=== PATIENT | male | born 1970 | race Two or more races ===

== ENCOUNTER 2018-12-14 11:38 | Inpatient (IN) | payer OTHER ==
[2018-12-14 13:20] VITALS: BMI 23.4
--- NOTE | 2018-12-14 16:39 | HP ---
COWS - Scale Resting Pulse: 0= [place] 80 or Below Sweatin= Chills/Flushing Restless Observation: 3= Extraneous Movement Pupil Size: 1= Pupils >than Normal Bone or Joint Aches: 1= Mild Discomfort Runny Nose/ Eye Tearin= Runny Nose/Eyes GI Upset > 30mins: 2= Nausea/Diarrhea Tremor Observation: 1= Tremor [place], Not Seen Yawning Observation: 0= None Anxiety or Irritability: 2=Irritable/Anxious Goose Flesh Skin: 0=Smooth Skin COWS Score: 13 CIWA Score Nausea/Vomitin Muscle Tremors: 2 Anxiety: 3 Agitation: 3 Paroxysmal Sweats: 1-Minimal Palms Moist Orientation: 0-Oriented Tacttile Disturbances: 2-Mild Itch/Numbness/Burn (numbness b/t feet) Auditory Disturbances: 1-Very Mild Visual Disturbances: 1-Very Mild Sensitivity Headache: 2-Mild CIWA-Ar Total Score: 17 - Admission Criteria OASAS Guidelines: Admission for Medically Managed Detox: Requires at least one of the followin. CIWA greater than 12 2. Seizures within the past 24 hours 3. Delirium tremens within the past 24 hours 4. Hallucinations within the past 24 hours 5. Acute intervention needed for co occurring medical disorder 6. Acute intervention needed for co occurring psychiatric disorder 7. Severe withdrawal that cannot be handled at a lower level of care (continued vomiting, continued diarrhea, abnormal vital signs) requiring intravenous medication and/or fluids 8. Patient presents the following: CIWA greater than 12 Admission Criteria Met: Admission criteria met Admission ROS [facility] Chief Complaint: alcohol and heroin detox Allergies/Adverse Reactions: Allergies Allergy/AdvReac Type Severity Reaction Status Date / Time No Known Allergies Allergy Verified 12/14/18 15:31 History of Present Illness: 48 yo male with hx of nicotine, Heroin (nasal), and alcohol dependence is here seeking detox, patient is self referred. PMHX: GERD. Denies psychiatric problems. Denies hx of blackouts, seizures or overdose Exam Limitations: No Limitations - Ebola screening Have you traveled outside of the country in the last 21 days: No Have you had contact with anyone from an Ebola affected area: No Have you been sick,other than usual withdrawal symptoms: No - Review of Systems Constitutional: Chills, Diaphoresis, Other (fatigue) EENT: reports: Nose Congestion Respiratory: reports: No Symptoms reported Cardiac: reports: No Symptoms Reported GI: reports: Nausea, Poor Fluid Intake, Indigestion, Abdominal cramping : reports: No Symptoms Reported Musculoskeletal: reports: Back Pain, Joint Pain Integumentary: reports: No Symptoms Reported Neuro: reports: Headache Patient History - Patient Medical History Hx Anemia: No Hx Asthma: No Hx Chronic Obstructive Pulmonary Disease (COPD): No Hx Cancer: No Hx Cardiac Disorders: No Hx Congestive Heart Failure: No Hx Hypertension: No Hx Hypercholesterolemia: No Hx Pacemaker: Yes HX Cerebrovascular Accident: No Hx Seizures: No Hx Dementia: No Hx Diabetes: No Hx Gastrointestinal Disorders: Yes (GERD ) Hx Liver Disease: No Hx Genitourinary Disorders: No Hx Sexually Transmitted Disorders: No Hx Renal Disease (ESRD): No Hx Thyroid Disease: No Hx Human Immunodeficiency Virus (HIV): No Hx Hepatitis C: No Hx Depression: No Hx Suicide Attempt: No Hx Bipolar Disorder: No Hx Schizophrenia: No - Patient Surgical History Past Surgical History: No - PPD History Previous Implant?: Yes Documented Results: Negative w/o proof Implanted On Prior [facility] Admission?: No PPD to be Administered?: Yes - Smoking Cessation Smoking history: Current every day smoker Have you smoked in the past 12 months: Yes Aproximately how many cigarettes per day: 2 Hx Chewing Tobacco Use: No Initiated information on smoking cessation: Yes 'Breaking Loose' booklet given: 12/14/18 - Substance & Tx. History Hx Alcohol Use: Yes Hx Substance Use: Yes Substance Use Type: Alcohol, Heroin Hx Substance Use Treatment: Yes (Reports detox July 2018 [facility] ) - Substances Abused Heroin Route: Inhalation Frequency: Daily Amount used: 1 bag Age of first use: 44 Date of Last Use: 12/13/18 alcohol Route: Oral Frequency: Daily Amount used: 1/2 pint Age of first use: 14 Date of Last Use: 12/13/18 Family Disease History - Family Disease History Family History: Denies Admission Physical Exam S - Vital Signs Vital Signs: Vital Signs - 24 hr 12/14/18 13:17 Temperature 97.4 F L Pulse Rate 77 Respiratory 20 Rate Blood Pressure 116/80 - Physical General Appearance: Yes: Appropriately Dressed, Mild Distress, Thin, Irritable, Anxious HEENTM: Yes: EOMI, Hearing grossly Normal, Normal ENT Inspection, Normocephalic , Normal Voice, Pharynx Normal, Tm's normal, Rhinorrhea Respiratory: Yes: Chest Non-Tender, Lungs Clear, Normal Breath Sounds, No Respiratory Distress, No Accessory Muscle Use Neck: Yes: Within Normal Limits Breast: Yes: Breast Exam Deferred Cardiology: Yes: Regular Rhythm, Regular Rate Abdominal: Yes: Normal Bowel Sounds, Non Tender, Flat, Soft Genitourinary: Yes: Within Normal Limits Back: Yes: Normal Inspection Musculoskeletal: Yes: full range of Motion, Gait Steady, Pelvis Stable Extremities: Yes: Normal Capillary Refill, Normal Inspection, Normal Range of Motion, Non-Tender Neurological: Yes: sr risk management consultant II-XII NML intact, Fully Oriented, Alert, Motor Strength 5/5 Integumentary: Yes: Normal Color, Warm, Diaphoresis Lymphatic: Yes: Within Normal Limits - Diagnostic (1) Alcohol dependence with withdrawal Current Visit: Yes Status: Acute Qualifiers: Complication of substance-induced condition: uncomplicated Qualified Code(s ): F10.230 - Alcohol dependence with withdrawal, uncomplicated (2) Opioid dependence with withdrawal Current Visit: Yes Status: Acute (3) Nicotine dependence Current Visit: Yes Status: Acute Qualifiers: Nicotine product type: cigarettes Cleared for Admission [facility] - Detox or Rehab [facility] Level of Care: Medically Managed Detox Regimen/Protocol: Methadone/Librium [facility] Breath Alcohol Content Breath Alcohol Content: 0 Urine Drug Screen - Results Drug Screen Negative: No Urine Drug Screen Results: THC-Marijuana, JAS-Cocaine, OPI-Opiates Inpatient Rehab Admission - Rehab Decision to Admit Inpatient rehab admission?: No
[2018-12-14] MEDS ORDERED: MAGNESIUM CITRATE 300 ML BOTTLE PO PRN (16:50)
[2018-12-14] MEDS ORDERED: MENTHOL/PHENOL 1 EACH UD MM PRN (16:50)
[2018-12-14] MEDS ORDERED: MAGNESIUM HYDROX 2400MG/30ML ORAL SUSPENSION 30 ML CUP PO PRN (16:50)
[2018-12-14] MEDS ORDERED: BISMUTH SUBSALICYLATE 524 MG/30 ML UD PO PRN (16:50)
[2018-12-14] MEDS ORDERED: ACETAMINOPHEN 325 MG TABLET (FP) PO PRN ×2 (16:50)
[2018-12-14] MEDS ORDERED: NICOTINE POLACRILEX 2 MG GUM BUC PRN (16:50)
[2018-12-14] MEDS ORDERED: MELATONIN 5 MG TABLETS PO PRN (16:50)
[2018-12-14] MEDS ORDERED: METHOCARBAMOL 500 MG TABLET PO PRN (16:50)
[2018-12-14] MEDS ORDERED: cloNIDine HCL 0.1 MG TABLET PO PRN (16:50)
[2018-12-14] MEDS ORDERED: IBUPROFEN 400 MG TABLET (FP) PO PRN (16:50)
[2018-12-14] MEDS ORDERED: chlordiazePOXIDE HCL 10 MG CAPSULE PO PRN (16:50)
[2018-12-14] MEDS ORDERED: MAG HYDROX/AL HYDROX/SIMETH 30 ML UNIT-DOSE CUP PO PRN (16:50)
[2018-12-14] MEDS: chlordiazePOXIDE HCL 25 MG CAPSULE PO SCH (22:07)
[2018-12-14] MEDS: THIAMINE HCL 100 MG TABLET (FP) PO SCH (22:07)
[2018-12-14] MEDS ORDERED: METHADONE HCL 10 MG TABLET (FOR DETOX USE ONLY) PO ONE (23:00)
[2018-12-15] MEDS: chlordiazePOXIDE HCL 25 MG CAPSULE PO SCH ×2 (05:25→14:11)
[2018-12-15] MEDS ORDERED: METHADONE HCL 5 MG TABLET (FOR DETOX USE ONLY) PO ONE (10:00)
[2018-12-15] MEDS: PRENATAL VITAMINS W/ FOLIC ACID TABLET (FP) PO SCH (10:10)
--- NOTE | 2018-12-15 10:18 | PN ---
[facility] CIWA - CIWA Score Nausea/Vomitin-No Nausea/No Vomiting Muscle Tremors: 3 Anxiety: 1-Mildly Anxious Agitation: 2 Paroxysmal Sweats: 1-Minimal Palms Moist Orientation: 3-Disoriented Date>2 days Tacttile Disturbances: 0-None Auditory Disturbances: 0-None Visual Disturbances: 0-None Headache: 2-Mild CIWA-Ar Total Score: 12 BHS COWS - Scale Resting Pulse: 0= [place] 80 or Below Sweatin= Chills/Flushing Restless Observation: 0= Sits Still Pupil Size: 0= Normal to Room Light Bone or Joint Aches: 1= Mild Discomfort Runny Nose/ Eye Tearin= Nasal Congestion GI Upset > 30mins: 1= Stomach Cramp Tremor Observation of Outstretched Hands: 2= Slight Tremor Visible Yawning Observation: 2= >3x During Session Anxiety or Irritability: 1=Feels Anxious/Irritable Goose Flesh Skin: 0=Smooth Skin COWS Score: 9 BHS Progress Note (SOAP) Subjective: reporting feeling ok today less tremor mild body aches encourage oral fluid that the patient favoring juice discuss low sugar content oral fluid Objective: 12/15/18 10:18 Vital Signs Temperature 97.2 F L 12/15/18 10:07 Pulse Rate 85 12/15/18 10:07 Respiratory Rate 18 12/15/18 10:07 Blood Pressure 105/68 12/15/18 10:07 O2 Sat by Pulse Oximetry (%) 12/15/18 10:18 lab pending Assessment: 12/15/18 10:20 alcohol and opiate withdrawal sx Plan: continue deotx
[2018-12-15 11:30] LABS: HEMATOCRIT 36.1 % (35.4-49); HEMOGLOBIN 12.3 GM/dL (11.7-16.9); MCH 31.3 pg (25.7-33.7); MCHC 34.1 g/dl (32.0-35.9); MEAN CELL VOLUME 91.6 fl (80-96); MEAN PLT VOLUME 9.4 fl (7.5-11.1); PLATELET COUNT 188 K/MM3 (134-434); RBC 3.94 M/mm3 (4.00-5.60); RDW 13.5 % (11.9-15.9); WHITE BLOOD COUNT 4.1 K/mm3 (4.0-10.0)
[2018-12-15 11:31] LABS: ALBUMIN 3.6 g/dl (3.4-5.0); ALK PHOS 47 U/L (45-117); ANION GAP 8 MMOL/L (8-16); BILIRUBIN,TOTAL 0.2 mg/dL (0.2-1); BLOOD UREA NITROGEN 13 mg/dL (7-18); CALCIUM 8.9 mg/dL (8.5-10.1); CHLORIDE 107 mmol/L (98-107); CO2 24 mmol/L (21-32); CREATININE 1.2 mg/dL (0.55-1.3); GLUCOSE,RANDOM 91 mg/dL (74-106); POTASSIUM 3.8 mmol/L (3.5-5.1); SGOT/AST 19 U/L (15-37); SGPT/ALT 25 U/L (13-61); SODIUM 138 mmol/L (136-145); TOT PROT 6.2 g/dl (6.4-8.2)
--- NOTE | 2018-12-15 14:06 | EKG ---
Test Reason : Blood Pressure : / mmHG Vent. Rate : 064 BPM Atrial Rate : 064 BPM P-R Int : 158 ms QRS Dur : 086 ms QT Int : 394 ms P-R-T Axes : 071 074 047 degrees QTc Int : 406 ms NORMAL SINUS RHYTHM NORMAL ECG NO PREVIOUS ECGS AVAILABLE Confirmed by LAWRENCE KAISER, YOSELYN ([id number]) on 12/15/2018 2:05:59 PM Referred By: Confirmed By:YOSELYN BRAVO MD
[2018-12-15] MEDS: THIAMINE HCL 100 MG TABLET (FP) PO SCH (22:13)
[2018-12-15] MEDS: chlordiazePOXIDE 5 MG CAPSULE PO SCH (22:14)
[2018-12-16] MEDS: chlordiazePOXIDE 5 MG CAPSULE PO SCH ×2 (05:06→14:38)
[2018-12-16] MEDS ORDERED: METHADONE HCL 10 MG TABLET (FOR DETOX USE ONLY) PO ONE (10:00)
[2018-12-16] MEDS: PRENATAL VITAMINS W/ FOLIC ACID TABLET (FP) PO SCH (10:22)
--- NOTE | 2018-12-16 11:04 | PN ---
[facility] CIWA - CIWA Score Nausea/Vomitin-No Nausea/No Vomiting Muscle Tremors: 1-None Visible, but Pettus Anxiety: 1-Mildly Anxious Agitation: 1-Slight > Activity Paroxysmal Sweats: 1-Minimal Palms Moist Orientation: 1-Uncertain about Date Tacttile Disturbances: 0-None Auditory Disturbances: 0-None Visual Disturbances: 0-None Headache: 1-Very Mild CIWA-Ar Total Score: 6 S Progress Note (SOAP) Subjective: reporting better today able to sleep through the night Objective: 12/16/18 11:03 Vital Signs Temperature 96.9 F L 12/16/18 09:56 Pulse Rate 72 12/16/18 09:56 Respiratory Rate 18 12/16/18 09:56 Blood Pressure 90/60 12/16/18 09:56 O2 Sat by Pulse Oximetry (%) Laboratory Last Values WBC 4.1 K/mm3 (4.0-10.0) 12/15/18 07:30 RBC 3.94 M/mm3 (4.00-5.60) L 12/15/18 07:30 Hgb 12.3 GM/dL (11.7-16.9) 12/15/18 07:30 Hct 36.1 % (35.4-49) 12/15/18 07:30 MCV 91.6 fl (80-96) 12/15/18 07:30 MCH 31.3 pg (25.7-33.7) 12/15/18 07:30 MCHC 34.1 g/dl (32.0-35.9) 12/15/18 07:30 RDW 13.5 % (11.9-15.9) 12/15/18 07:30 Plt Count 188 K/MM3 (134-434) 12/15/18 07:30 MPV 9.4 fl (7.5-11.1) 12/15/18 07:30 Sodium 138 mmol/L (136-145) 12/15/18 07:30 Potassium 3.8 mmol/L (3.5-5.1) 12/15/18 07:30 Chloride 107 mmol/L (98-107) 12/15/18 07:30 Carbon Dioxide 24 mmol/L (21-32) 12/15/18 07:30 Anion Gap 8 MMOL/L (8-16) 12/15/18 07:30 BUN 13 mg/dL (7-18) 12/15/18 07:30 Creatinine 1.2 mg/dL (0.55-1.3) 12/15/18 07:30 Creat Clearance w eGFR 64.09 (>60) 12/15/18 07:30 Random Glucose 91 mg/dL (74-106) 12/15/18 07:30 Calcium 8.9 mg/dL (8.5-10.1) 12/15/18 07:30 Total Bilirubin 0.2 mg/dL (0.2-1) 12/15/18 07:30 AST 19 U/L (15-37) 12/15/18 07:30 ALT 25 U/L (13-61) 12/15/18 07:30 Alkaline Phosphatase 47 U/L (45-117) 12/15/18 07:30 Total Protein 6.2 g/dl (6.4-8.2) L 12/15/18 07:30 Albumin 3.6 g/dl (3.4-5.0) 12/15/18 07:30 RPR Titer Nonreactive (NONREACTIVE) 12/15/18 07:30 lab noted Assessment: 12/16/18 11:03 withdrawal sx Plan: continue detox
--- NOTE | 2018-12-16 11:13 | PN ---
BHS COWS - Scale Resting Pulse: 0= IN 80 or Below Sweatin= Chills/Flushing Restless Observation: 0= Sits Still Pupil Size: 0= Normal to Room Light Bone or Joint Aches: 1= Mild Discomfort Runny Nose/ Eye Tearin= Nasal Congestion GI Upset > 30mins: 1= Stomach Cramp Tremor Observation of Outstretched Hands: 0= None Yawning Observation: 0= None Anxiety or Irritability: 1=Feels Anxious/Irritable Goose Flesh Skin: 0=Smooth Skin COWS Score: 5
[2018-12-16] MEDS ORDERED: chlordiazePOXIDE HCL 10 MG CAPSULE PO PRN (21:00)
[2018-12-16] MEDS: THIAMINE HCL 100 MG TABLET (FP) PO SCH (22:04)
[2018-12-16] MEDS: chlordiazePOXIDE HCL 10 MG CAPSULE PO SCH (22:04)
[2018-12-17] MEDS: chlordiazePOXIDE HCL 10 MG CAPSULE PO SCH (05:09)
[2018-12-17] MEDS ORDERED: METHADONE HCL 5 MG TABLET (FOR DETOX USE ONLY) PO ONE (06:00)
[2018-12-17 06:20] VITALS: BP 99/53; PULSE 75; TEMP 97.7
--- NOTE | 2018-12-17 17:41 | DS ---
[facility] Detox Discharge Summary Admission Date: 12/14/18 Discharge Date: 12/17/18 - History Present History: Alcohol Dependence, Opioid Dependence Additional Comments: PATIENT REFERR[facility] [place]. PATIENT WAS DISCHARGED FROM DETOX UNIT IN STABLE MEDICAL CONDITION. Pertinent Past History: History Of Pacemaker Placement, History of G.E.R.D., Nicotine Dependence. - Physical Exam Results Vital Signs: Vital Signs Temperature 97.7 F 12/17/18 06:19 Pulse Rate 75 12/17/18 06:19 Respiratory Rate 18 12/17/18 06:19 Blood Pressure 99/53 L 12/17/18 06:19 O2 Sat by Pulse Oximetry (%) Pertinent Admission Physical Exam Findings: WITHDRAWAL SYMPTOMS. Laboratory Tests 12/15/18 12/15/18 12/15/18 07:30 07:30 07:30 WBC 4.1 RBC 3.94 L Hgb 12.3 Hct 36.1 MCV 91.6 MCH 31.3 MCHC 34.1 RDW 13.5 Plt Count 188 MPV 9.4 Sodium 138 Potassium 3.8 Chloride 107 Carbon Dioxide 24 Anion Gap 8 BUN 13 Creatinine 1.2 Creat Clearance w eGFR 64.09 Random Glucose 91 Calcium 8.9 Total Bilirubin 0.2 AST 19 ALT 25 Alkaline Phosphatase 47 Total Protein 6.2 L Albumin 3.6 RPR Titer Nonreactive LABS NOTED. - Treatment Hospital Course: Detox Protocol Followed, Detoxed Safely, Responded well, Discharged Condition Good Patient has Accepted a Rehab Referral to: PT. REFERRED TO [facility] ([place], [place]) - Medication Discharge Medications: Ambulatory Orders NK [No Known Home Medication] 12/14/18 - Diagnosis (1) Alcohol dependence with withdrawal Status: Acute Qualifiers: Complication of substance-induced condition: uncomplicated Qualified Code(s ): F10.230 - Alcohol dependence with withdrawal, uncomplicated (2) Nicotine dependence Status: Acute Qualifiers: Nicotine product type: cigarettes Substance use status: uncomplicated Qualified Code(s): F17.210 - Nicotine dependence, cigarettes, uncomplicated (3) Opioid dependence with withdrawal Status: Acute - AMA Did Patient Leave Against Medical Advice: No
== END 2018-12-17 08:30 | disposition home or self-care (01) | DRG 773 ==
LOC: YASAS 11:38 → Y3N 17:45
PROVIDERS: ADMIT Surgery; ATTEND Surgery
PROC: HZ2ZZZZ Detoxification Services for Substance Abuse Treatment (ICD-10-PCS; principal; 2018-12-14)
DX: F11.23 Opioid dependence with withdrawal (principal); F10.230 Alcohol dependence with withdrawal, uncomplicated; F17.213 Nicotine dependence, cigarettes, with withdrawal; K21.9 Gastro-esophageal reflux disease without esophagitis; Z95.0 Presence of cardiac pacemaker
CPT/HCPCS: 36415; 80053; 85027; 86593; 93005; 93010

== ENCOUNTER 2019-03-01 15:10 | Inpatient (IN) | payer OTHER ==
[2019-03-01 18:44] VITALS: BMI 24.0
--- NOTE | 2019-03-01 19:09 | HP ---
"COWS - Scale Resting Pulse: 1= [place] 81-100 Sweatin= No chills or Flushing Restless Observation: 3= Extraneous Movement Pupil Size: 0= Normal to Room Light Bone or Joint Aches: 0= None Runny Nose/ Eye Tearin= None GI Upset > 30mins: 0= None Tremor Observation: 0= None Yawning Observation: 1= 1-2x During Session Anxiety or Irritability: 2=Irritable/Anxious Goose Flesh Skin: 0=Smooth Skin COWS Score: 7 CIWA Score - Admission Criteria OASAS Guidelines: Admission for Medically Managed Detox: Requires at least one of the followin. CIWA greater than 12 2. Seizures within the past 24 hours 3. Delirium tremens within the past 24 hours 4. Hallucinations within the past 24 hours 5. Acute intervention needed for co occurring medical disorder 6. Acute intervention needed for co occurring psychiatric disorder 7. Severe withdrawal that cannot be handled at a lower level of care (continued vomiting, continued diarrhea, abnormal vital signs) requiring intravenous medication and/or fluids 8. Admission ROS [facility] Allergies/Adverse Reactions: Allergies Allergy/AdvReac Type Severity Reaction Status Date / Time No Known Allergies Allergy Verified 03/01/19 18:36 History of Present Illness: Search Terms: dez morales, 1970 Search Date: 03/01/2019 07:07:04 PM The Drug Utilization Report below displays all of the controlled substance prescriptions, if any, that your patient has filled in the last twelve months. The information displayed on this report is compiled from pharmacy submissions to the Department, and accurately reflects the information as submitted by the pharmacies. This report was requested by: Cassi Maloney | Reference #: [id number] There are no results for the search terms that you entered. pt here for detox from opiate use , reports 1 bag heroin /day via inhalation , use x 4 years intermittently , reports symptoms if not using , latest use yesterday 3 pm , current symptoms as above . Referred by parole for detox and rehab - has letter . In [facility] outpt program x 5 months . Reports use every other day . denies etoh use tobacco : 10/01 ppd cannabis - denies PMHX : spontaneous pneumothorax 22 years ago PSHx : denies psych : denies shx ; lives w/ father , unemployed , on parole Exam Limitations: No Limitations - Ebola screening Have you traveled outside of the country in the last 21 days: No (N) Have you had contact with anyone from an Ebola affected area: No Do you have a fever: No - Review of Systems Constitutional: See HPI EENT: reports: Other (glasses) Respiratory: reports: No Symptoms reported Cardiac: reports: No Symptoms Reported GI: reports: No Symptoms Reported : reports: No Symptoms Reported Musculoskeletal: reports: No Symptoms Reported Neuro: reports: No Symptoms reported Endocrine: reports: No Symptoms Reported Psychiatric: reports: Orientated x3, Agitated, Anxious Patient History - Patient Medical History Hx Anemia: No Hx Asthma: No Hx Chronic Obstructive Pulmonary Disease (COPD): No Hx Cancer: No Hx Cardiac Disorders: No Hx Congestive Heart Failure: No Hx Hypertension: No Hx Hypercholesterolemia: No Hx Pacemaker: Yes HX Cerebrovascular Accident: No Hx Seizures: No Hx Dementia: No Hx Diabetes: No Hx Gastrointestinal Disorders: Yes (GERD ) Hx Liver Disease: No Hx Genitourinary Disorders: No Hx Sexually Transmitted Disorders: No Hx Renal Disease (ESRD): No Hx Thyroid Disease: No Hx Human Immunodeficiency Virus (HIV): No Hx Hepatitis C: No Hx Depression: No Hx Suicide Attempt: No Hx Bipolar Disorder: No Hx Schizophrenia: No - Patient Surgical History Past Surgical History: No - PPD History Date: 12/16/18 - Smoking Cessation Smoking history: Current every day smoker Have you smoked in the past 12 months: Yes Aproximately how many cigarettes per day: 2 Hx Chewing Tobacco Use: No Initiated information on smoking cessation: No - Substances abused Heroin Substance route: Inhalation Frequency: Daily Amount used: 1 bag Age of first use: 44 Date of last use: 02/28/19 Alcohol Substance route: Oral Frequency: No use in 30 days Family Disease History - Family Disease History Family Disease History: Other: Father (A & W ), Mother (A & W ), Brother (A & W ), Sister (A & W ) Other Family History: no children Admission Physical Exam BHS - Vital Signs Vital Signs: Vital Signs - 24 hr 03/01/19 18:33 Temperature 97.2 F L Pulse Rate 83 Respiratory 16 Rate Blood Pressure 116/72 - Physical General Appearance: Yes: Irritable, Anxious HEENTM: Yes: EOMI, Normocephalic, Normal Voice, Other (right superior palpebral lipoma) Respiratory: Yes: Chest Non-Tender, Lungs Clear, Normal Breath Sounds, No Respiratory Distress, No Accessory Muscle Use Neck: Yes: No masses,lesions,Nodules, Trachea in good position Cardiology: Yes: Regular Rhythm, Regular Rate, S1, S2 Abdominal: Yes: Non Tender, Soft Musculoskeletal: Yes: Gait Steady Extremities: Yes: Normal Range of Motion Neurological: Yes: Fully Oriented, Alert, Motor Strength 5/5 Integumentary: Yes: Warm - Diagnostic (1) Opioid abuse Current Visit: Yes Status: Acute (2) Nicotine dependence Current Visit: Yes Status: Chronic Qualifiers: Nicotine product type: cigarettes Substance use status: uncomplicated Qualified Code(s): F17.210 - Nicotine dependence, cigarettes, uncomplicated Breathalyzer - Breathalyzer Breathalyzer: 0 Urine Drug Screen - Test Device Lot number: [id number] Expiration date: 11/25/20 - Control Is test valid?: Yes - Results Drug screen NEGATIVE: No Urine drug screen results: THC-Marijuana, MOP-Opiates Inpatient Rehab Admission - Rehab Decision to Admit Inpatient rehab admission?: No"
[2019-03-01] MEDS ORDERED: MAGNESIUM CITRATE 300 ML BOTTLE PO PRN (19:33)
[2019-03-01] MEDS ORDERED: IBUPROFEN 400 MG TABLET (FP) PO PRN (19:33)
[2019-03-01] MEDS ORDERED: MAGNESIUM HYDROX 2400MG/30ML ORAL SUSPENSION 30 ML CUP PO PRN (19:33)
[2019-03-01] MEDS ORDERED: MAG HYDROX/AL HYDROX/SIMETH 30 ML UNIT-DOSE CUP PO PRN (19:33)
[2019-03-01] MEDS ORDERED: ACETAMINOPHEN 325 MG TABLET (FP) PO PRN ×2 (19:33)
[2019-03-01] MEDS ORDERED: BISMUTH SUBSALICYLATE 524 MG/30 ML UD PO PRN (19:33)
[2019-03-01] MEDS ORDERED: MENTHOL/PHENOL 1 EACH UD MM PRN (19:33)
[2019-03-01] MEDS ORDERED: cloNIDine HCL 0.1 MG TABLET PO PRN (19:33)
[2019-03-01] MEDS: MELATONIN 5 MG TABLETS PO PRN (22:18)
[2019-03-01] MEDS: THIAMINE HCL 100 MG TABLET (FP) PO SCH (22:18)
[2019-03-01] MEDS ORDERED: METHADONE HCL 10 MG TABLET (FOR DETOX USE ONLY) PO ONE (23:00)
[2019-03-02] MEDS: hydrOXYzine PAMOATE 25 MG CAPSULE (FP) PO PRN (06:14)
--- NOTE | 2019-03-02 09:45 | PN ---
BHS COWS - Scale Resting Pulse: 0= [place] 80 or Below Sweatin=Flushed/Facial Moisture Restless Observation: 1= Difficult to Sit Still Pupil Size: 0= Normal to Room Light Bone or Joint Aches: 1= Mild Discomfort Runny Nose/ Eye Tearin= Nasal Congestion GI Upset > 30mins: 0= None Tremor Observation of Outstretched Hands: 1= Tremor Sheldon, Not Seen Yawning Observation: 1= 1-2x During Session Anxiety or Irritability: 1=Feels Anxious/Irritable Goose Flesh Skin: 0=Smooth Skin COWS Score: 8 BHS Progress Note (SOAP) Subjective: chills sweats Objective: 03/02/19 09:45 Vital Signs Temperature 97.7 F 03/02/19 09:30 Pulse Rate 72 03/02/19 09:30 Respiratory Rate 18 03/02/19 09:30 Blood Pressure 114/62 03/02/19 09:30 O2 Sat by Pulse Oximetry (%) pending labs [id number] ambulating no acute distress Assessment: 03/02/19 09:45 mild withdrawal sx Plan: continue detox as ordered increase fluids
[2019-03-02] MEDS ORDERED: METHADONE HCL 5 MG TABLET (FOR DETOX USE ONLY) PO ONE (10:00)
[2019-03-02] MEDS: PRENATAL VITAMINS W/ FOLIC ACID TABLET (FP) PO SCH (10:48)
[2019-03-02 10:57] LABS: HEMATOCRIT 39.3 % (35.4-49); HEMOGLOBIN 13.1 GM/dL (11.7-16.9); MCH 30.7 pg (25.7-33.7); MCHC 33.2 g/dl (32.0-35.9); MEAN CELL VOLUME 92.5 fl (80-96); PLATELET COUNT 232 K/MM3 (134-434); RBC 4.25 M/mm3 (4.00-5.60); RDW 14.3 % (11.9-15.9); WHITE BLOOD COUNT 3.6 K/mm3 (4.0-10.0)
[2019-03-02 11:09] LABS: ALBUMIN 3.7 g/dl (3.4-5.0); BILIRUBIN,TOTAL 0.7 mg/dL (0.2-1); CALCIUM 9.2 mg/dL (8.5-10.1); CREATININE 1.1 mg/dL (0.55-1.3); POTASSIUM 4.3 mmol/L (3.5-5.1); TOT PROT 6.5 g/dl (6.4-8.2)
[2019-03-02] MEDS: MELATONIN 5 MG TABLETS PO PRN (22:06)
[2019-03-02] MEDS: THIAMINE HCL 100 MG TABLET (FP) PO SCH (22:06)
[2019-03-03] MEDS: hydrOXYzine PAMOATE 25 MG CAPSULE (FP) PO PRN (06:54)
--- NOTE | 2019-03-03 09:20 | PN ---
BHS COWS - Scale Resting Pulse: 0= [place] 80 or Below Sweatin=Flushed/Facial Moisture Restless Observation: 0= Sits Still Pupil Size: 0= Normal to Room Light Bone or Joint Aches: 2= Severe Diffuse Aches Runny Nose/ Eye Tearin= None GI Upset > 30mins: 0= None Tremor Observation of Outstretched Hands: 2= Slight Tremor Visible Yawning Observation: 2= >3x During Session Anxiety or Irritability: 2=Irritable/Anxious Goose Flesh Skin: 0=Smooth Skin COWS Score: 10 BHS Progress Note (SOAP) Subjective: sweats anxiety Objective: 03/03/19 09:41 Vital Signs Temperature 97.7 F 03/03/19 09:23 Pulse Rate 73 03/03/19 09:23 Respiratory Rate 18 03/03/19 09:23 Blood Pressure 108/52 L 03/03/19 09:23 O2 Sat by Pulse Oximetry (%) Laboratory Tests 03/02/19 03/02/19 03/02/19 07:00 07:00 07:00 WBC 3.6 L RBC 4.25 Hgb 13.1 Hct 39.3 MCV 92.5 MCH 30.7 MCHC 33.2 RDW 14.3 Plt Count 232 D MPV 9.0 Sodium 140 Potassium 4.3 Chloride 106 Carbon Dioxide 29 Anion Gap 6 L BUN 11 Creatinine 1.1 Est GFR (CKD-EPI)AfAm 90.24 Est GFR (CKD-EPI)NonAf 77.86 Random Glucose 90 Calcium 9.2 Total Bilirubin 0.7 AST 22 ALT 30 Alkaline Phosphatase 49 Total Protein 6.5 Albumin 3.7 RPR Titer Nonreactive aaox3 ambulating no acute distress Assessment: 03/03/19 09:42 mild withdrawal sx Plan: continue detox increase fluids d/c in am
[2019-03-03] MEDS ORDERED: METHADONE HCL 5 MG TABLET (FOR DETOX USE ONLY) PO ONE (10:00)
[2019-03-03] MEDS ORDERED: METHADONE HCL 10 MG TABLET (FOR DETOX USE ONLY) PO ONE (10:00)
[2019-03-03] MEDS: PRENATAL VITAMINS W/ FOLIC ACID TABLET (FP) PO SCH (10:21)
[2019-03-03] MEDS: MELATONIN 5 MG TABLETS PO PRN (22:14)
[2019-03-03] MEDS: THIAMINE HCL 100 MG TABLET (FP) PO SCH (22:14)
[2019-03-04] MEDS ORDERED: METHADONE HCL 5 MG TABLET (FOR DETOX USE ONLY) PO ONE (06:00)
[2019-03-04 06:39] VITALS: TEMP 97.7
[2019-03-04 09:19] VITALS: BP 114/58; PULSE 66
--- NOTE | 2019-03-04 09:35 | DS ---
[facility] Detox Discharge Summary Admission Date: 03/01/19 Discharge Date: 03/04/19 - History Present History: Alcohol Dependence, Opioid Dependence - Physical Exam Results Vital Signs: Vital Signs Temperature 97.7 F 03/04/19 09:19 Pulse Rate 66 03/04/19 09:19 Respiratory Rate 16 03/04/19 09:19 Blood Pressure 114/58 L 03/04/19 09:19 O2 Sat by Pulse Oximetry (%) - Treatment Hospital Course: Detox Protocol Followed, Detoxed Safely, Responded well, Discharged Condition Good, Rehab Referral Accepted - Medication Discharge Medications: Ambulatory Orders NK [No Known Home Medication] 12/14/18 - Diagnosis (1) Nicotine dependence Current Visit: Yes Status: Chronic Qualifiers: Nicotine product type: cigarettes Substance use status: uncomplicated Qualified Code(s): F17.210 - Nicotine dependence, cigarettes, uncomplicated (2) Alcohol dependence with withdrawal Current Visit: Yes Status: Chronic Qualifiers: Complication of substance-induced condition: uncomplicated Qualified Code(s ): F10.230 - Alcohol dependence with withdrawal, uncomplicated (3) Opioid dependence with withdrawal Current Visit: Yes Status: Chronic - AMA Did Patient Leave Against Medical Advice: No ([facility])
== END 2019-03-04 09:45 | disposition home or self-care (01) | DRG 773 ==
LOC: YASAS 15:10 → Y6N 20:03
PROVIDERS: ADMIT Surgery; ATTEND Surgery
PROC: HZ2ZZZZ Detoxification Services for Substance Abuse Treatment (ICD-10-PCS; principal; 2019-03-01)
DX: F11.23 Opioid dependence with withdrawal (principal); F10.230 Alcohol dependence with withdrawal, uncomplicated; F17.210 Nicotine dependence, cigarettes, uncomplicated
CPT/HCPCS: 36415; 80053; 85027; 86593

== ENCOUNTER 2019-07-06 14:05 | Inpatient (IN) | payer OTHER ==
[2019-07-06 15:06] VITALS: BMI 23.6
--- NOTE | 2019-07-06 17:36 | HP ---
COWS - Scale Resting Pulse: 0= GA 80 or Below Sweatin= Chills/Flushing Restless Observation: 1= Difficult to Sit Still Pupil Size: 0= Normal to Room Light Bone or Joint Aches: 0= None Runny Nose/ Eye Tearin= Runny Nose/Eyes GI Upset > 30mins: 0= None Tremor Observation: 1= Tremor Matthews, Not Seen Yawning Observation: 1= 1-2x During Session Anxiety or Irritability: 0= None Goose Flesh Skin: 0=Smooth Skin COWS Score: 6 CIWA Score - Admission Criteria OASAS Guidelines: Admission for Medically Managed Detox: Requires at least one of the followin. CIWA greater than 12 2. Seizures within the past 24 hours 3. Delirium tremens within the past 24 hours 4. Hallucinations within the past 24 hours 5. Acute intervention needed for co occurring medical disorder 6. Acute intervention needed for co occurring psychiatric disorder 7. Severe withdrawal that cannot be handled at a lower level of care (continued vomiting, continued diarrhea, abnormal vital signs) requiring intravenous medication and/or fluids 8. Admitting History and Physical - Smoking History Smoking history: Current every day smoker Have you smoked in the past 12 months: Yes Aproximately how many cigarettes per day: 2 - Alcohol/Substance Use Hx Alcohol Use: Yes Admission ROS [facility] - [facility] Chief Complaint: Dale Cadena is 48 year old male presenting for heroin abuse. Allergies/Adverse Reactions: Allergies Allergy/AdvReac Type Severity Reaction Status Date / Time No Known Allergies Allergy Verified 03/01/19 18:36 History of Present Illness: Dale Cadena is 48 year old male presenting for heroin abuse. Heroin: 1-2 bags. Daily user. Last use was last night. Inhalation. Denies IVDU use. Denies overdose. Has a Narcan kit at home. Was referred here by parole after having a positive urine. Has never been a methadone program. Withdrawal symptoms: anxiety, tremors, nausea, diarrhea, rhinnorhea. States gets withdrawal symptoms 24 hours after last use. States gets his heroin from multiple dealers, is not always certain what is in her heroin but states he can "taste it". Denies other substance use. Has been to detox in the past. Has been to outpatient rehab in the past. States that plans after detox are to go into the inpatient rehab program and then return to his outpatient program. States is interested in Vivitrol. Medical History: kidney stones Surgical History: chest tube placed s/p pneumothorax Psychiatric History: denies Smokin-5 cigarettes daily, 30 years Social: lives in an apartment, lives with father. Unemployed. Utox: JAS, FEN, MOP, OXY ARTHUR 0.000 Will be admitted for methadone detox and expected withdrawal symptoms. Admitted due to having positive urines on parole. Counseled on staying in his outpatient program after completing inpatient rehab. Will return to primary care doctor after completion of rehab for trial of Vivitrol. Exam Limitations: No Limitations - Ebola screening Have you traveled outside of the country in the last 21 days: No Have you had contact with anyone from an Ebola affected area: No Do you have a fever: No - Review of Systems Constitutional: Loss of Appetite EENT: reports: No Symptoms Reported Respiratory: reports: No Symptoms reported Cardiac: reports: No Symptoms Reported GI: reports: No Symptoms Reported : reports: No Symptoms Reported Musculoskeletal: reports: No Symptoms Reported Integumentary: reports: No Symptoms Reported Neuro: reports: No Symptoms reported Endocrine: reports: No Symptoms Reported Hematology: reports: No Symptoms Reported Psychiatric: reports: Orientated x3, Anxious Patient History - Patient Medical History Hx Anemia: No Hx Asthma: No Hx Chronic Obstructive Pulmonary Disease (COPD): No Hx Cancer: No Hx Cardiac Disorders: No Hx Congestive Heart Failure: No Hx Hypertension: No Hx Hypercholesterolemia: No Hx Pacemaker: No HX Cerebrovascular Accident: No Hx Seizures: No Hx Dementia: No Hx Diabetes: No Hx Gastrointestinal Disorders: Yes (GERD ) Hx Liver Disease: No Hx Genitourinary Disorders: No Hx Sexually Transmitted Disorders: No Hx Renal Disease (ESRD): No Hx Thyroid Disease: No Hx Human Immunodeficiency Virus (HIV): No Hx Hepatitis C: No Hx Depression: No Hx Suicide Attempt: No Hx Bipolar Disorder: No Hx Schizophrenia: No - Patient Surgical History Past Surgical History: No Hx Neurologic Surgery: No Hx Cataract Extraction: No Hx Cardiac Surgery: No Hx Lung Surgery: No Hx Breast Surgery: No Hx Breast Biopsy: No Hx Abdominal Surgery: No Hx Appendectomy: No Hx Cholecystectomy: No Hx Genitourinary Surgery: No Hx Section: No Hx Orthopedic Surgery: No Anesthesia Reaction: No - PPD History Previous Implant?: Yes Documented Results: Negative w/o proof Implanted On Prior [facility] Admission?: Yes Date: 12/16/18 PPD to be Administered?: No - Smoking Cessation Smoking history: Current every day smoker Have you smoked in the past 12 months: Yes Aproximately how many cigarettes per day: 2 Hx Chewing Tobacco Use: No Initiated information on smoking cessation: Yes 'Breaking Loose' booklet given: 07/06/19 - Substance & Tx. History Hx Alcohol Use: No Hx Substance Use: Yes Substance Use Type: Heroin Hx Substance Use Treatment: Yes - Substances abused Heroin Substance route: Inhalation Frequency: Daily Amount used: 2 bags Age of first use: 38 Date of last use: 07/05/19 Alcohol Substance route: Oral Frequency: No use in 30 days Admission Physical Exam BHS - Vital Signs Vital Signs: Vital Signs - 24 hr 07/06/19 07/06/19 14:57 15:26 Temperature 97.1 F L 97.1 F L Pulse Rate 64 64 Respiratory 18 18 Rate Blood Pressure 123/77 123/77 - Physical General Appearance: Yes: Disheveled, Mild Distress HEENTM: Yes: EOMI, Normocephalic, Normal Voice, JONATHON, Pharynx Normal Respiratory: Yes: Chest Non-Tender, Lungs Clear, Normal Breath Sounds, No Respiratory Distress, No Accessory Muscle Use Neck: Yes: No masses,lesions,Nodules, Trachea in good position Breast: Yes: Breast Exam Deferred Cardiology: Yes: Regular Rhythm, Regular Rate, S1, S2 Abdominal: Yes: Normal Bowel Sounds, Non Tender, Flat, Soft Genitourinary: Yes: Within Normal Limits Back: Yes: Normal Inspection Musculoskeletal: Yes: full range of Motion, Gait Steady Extremities: Yes: Normal Capillary Refill, Normal Inspection, Normal Range of Motion, Non-Tender Neurological: Yes: heart coordinator II-XII NML intact, Fully Oriented, Alert, Motor Strength 5/5, Normal Response Integumentary: Yes: Normal Color, Dry, Warm - Diagnostic (1) GERD (gastroesophageal reflux disease) Current Visit: Yes Status: Acute (2) Alcohol dependence with withdrawal Current Visit: No Status: Chronic Qualifiers: Complication of substance-induced condition: uncomplicated Qualified Code(s ): F10.230 - Alcohol dependence with withdrawal, uncomplicated (3) Nicotine dependence Current Visit: No Status: Chronic Qualifiers: Nicotine product type: cigarettes Substance use status: uncomplicated Qualified Code(s): F17.210 - Nicotine dependence, cigarettes, uncomplicated (4) Opioid dependence with withdrawal Current Visit: No Status: Chronic Cleared for Admission [facility] - Detox or Rehab [facility] Level of Care: Medically Managed Detox Regimen/Protocol: Methadone Breathalyzer - Breathalyzer Breathalyzer: 0 Urine Drug Screen - Test Device Lot number: [id number] Expiration date: 02/24/21 - Control Is test valid?: Yes - Results Drug screen NEGATIVE: No Urine drug screen results: JAS-Cocaine, FEN-Fentanyl, MOP-Opiates, OXY-Oxycodone Inpatient Rehab Admission - Rehab Decision to Admit Inpatient rehab admission?: No
[2019-07-06] MEDS ORDERED: ACETAMINOPHEN 325 MG TABLET (FP) PO PRN ×2 (17:57)
[2019-07-06] MEDS ORDERED: cloNIDine HCL 0.1 MG TABLET PO PRN (17:57)
[2019-07-06] MEDS ORDERED: MAG HYDROX/AL HYDROX/SIMETH 30 ML UNIT-DOSE CUP PO PRN (17:57)
[2019-07-06] MEDS ORDERED: MENTHOL/PHENOL 1 EACH UD MM PRN (17:57)
[2019-07-06] MEDS ORDERED: hydrOXYzine PAMOATE 25 MG CAPSULE (FP) PO PRN (17:57)
[2019-07-06] MEDS ORDERED: BISMUTH SUBSALICYLATE 524 MG/30 ML UD PO PRN (17:57)
[2019-07-06] MEDS ORDERED: MAGNESIUM CITRATE 300 ML BOTTLE PO PRN (17:57)
[2019-07-06] MEDS ORDERED: MAGNESIUM HYDROX 2400MG/30ML ORAL SUSPENSION 30 ML CUP PO PRN (17:57)
[2019-07-06] MEDS ORDERED: METHADONE HCL 10 MG TABLET (FOR DETOX USE ONLY) PO ONE (18:30)
--- NOTE | 2019-07-06 18:38 | PN ---
Teaching Attending Note Name of Resident: Juan Almeida ATTENDING PHYSICIAN STATEMENT I saw and evaluated the patient. I reviewed the resident's note and discussed the case with the resident. I agree with the resident's findings and plan as documented. SUBJECTIVE: 48 yo with OUD, pt referred here from parole for detox from opiates. Pt states he would like to get vivitrol at discharge- has been on it before and has helped him. OBJECTIVE: Vital Signs - 24 hr 07/06/19 07/06/19 14:57 15:26 Temperature 97.1 F L 97.1 F L Pulse Rate 64 64 Respiratory 18 18 Rate Blood Pressure 123/77 123/77 alert and oriented mildly tremulous ASSESSMENT AND PLAN: OUD- methadone detox protocol
[2019-07-06] MEDS ORDERED: IBUPROFEN 400 MG TABLET (FP) PO PRN (22:00)
[2019-07-06] MEDS: THIAMINE HCL 100 MG TABLET (FP) PO SCH (22:11)
[2019-07-06] MEDS: MELATONIN 5 MG TABLETS PO PRN (22:11)
[2019-07-07] MEDS ORDERED: METHADONE HCL 5 MG TABLET (FOR DETOX USE ONLY) PO ONE (10:00)
[2019-07-07 10:18] LABS: HEMATOCRIT 38.8 % (35.4-49); HEMOGLOBIN 12.8 GM/dL (11.7-16.9); MCH 29.9 pg (25.7-33.7); MEAN CELL VOLUME 90.8 fl (80-96); MEAN PLT VOLUME 9.3 fl (7.5-11.1); PLATELET COUNT 197 K/MM3 (134-434); RBC 4.28 M/mm3 (4.00-5.60); RDW 13.9 % (11.9-15.9); WHITE BLOOD COUNT 3.2 K/mm3 (4.0-10.0)
[2019-07-07 10:25] LABS: ALBUMIN 3.8 g/dl (3.4-5.0); BILIRUBIN,TOTAL 0.4 mg/dL (0.2-1); BLOOD UREA NITROGEN 12.8 mg/dL (7-18); CALCIUM 8.9 mg/dL (8.5-10.1); CREATININE 1.2 mg/dL (0.55-1.3); POTASSIUM 4.1 mmol/L (3.5-5.1); TOT PROT 6.6 g/dl (6.4-8.2)
[2019-07-07] MEDS: PRENATAL VITAMINS W/ FOLIC ACID TABLET (FP) PO SCH (10:28)
--- NOTE | 2019-07-07 17:55 | PN ---
S CIWA - CIWA Score Nausea/Vomitin-No Nausea/No Vomiting Muscle Tremors: 3 Anxiety: 3 Agitation: 0-Normal Activity Paroxysmal Sweats: 1-Minimal Palms Moist Orientation: 0-Oriented Tacttile Disturbances: 2-Mild Itch/Numbness/Burn Auditory Disturbances: 0-None Visual Disturbances: 1-Very Mild Sensitivity Headache: 0-None Present CIWA-Ar Total Score: 10 BHS Progress Note (SOAP) Subjective: Tremors, Fatigue, Runny Nose, Interrupted Sleep. Objective: PATIENT A & O X 3. IN NO ACUTE DISTRESS. 07/07/19 17:54 Vital Signs Temperature 96.5 F L 07/07/19 13:28 Pulse Rate 71 07/07/19 13:28 Respiratory Rate 18 07/07/19 13:28 Blood Pressure 107/72 07/07/19 13:28 O2 Sat by Pulse Oximetry (%) Laboratory Tests 07/07/19 07/07/19 07/07/19 08:10 08:10 08:10 WBC 3.2 L RBC 4.28 Hgb 12.8 Hct 38.8 MCV 90.8 MCH 29.9 MCHC 33.0 RDW 13.9 Plt Count 197 MPV 9.3 Sodium 142 Potassium 4.1 Chloride 106 Carbon Dioxide 30 Anion Gap 6 L BUN 12.8 Creatinine 1.2 Est GFR (CKD-EPI)AfAm 81.23 Est GFR (CKD-EPI)NonAf 70.09 Random Glucose 113 H Calcium 8.9 Total Bilirubin 0.4 AST 15 ALT 22 Alkaline Phosphatase 49 Total Protein 6.6 Albumin 3.8 RPR Titer Nonreactive LABS NOTED. Assessment: 07/07/19 17:55 WITHDRAWAL SYMPTOMS. LEUKOPENIA. Plan: CONTINUE DETOX. INCREASE DAILY PO WATER INTAKE.
[2019-07-07] MEDS: THIAMINE HCL 100 MG TABLET (FP) PO SCH (22:12)
[2019-07-07] MEDS: MELATONIN 5 MG TABLETS PO PRN (22:12)
[2019-07-08] MEDS ORDERED: METHADONE HCL 10 MG TABLET (FOR DETOX USE ONLY) PO ONE (10:00)
[2019-07-08] MEDS: PRENATAL VITAMINS W/ FOLIC ACID TABLET (FP) PO SCH (10:15)
--- NOTE | 2019-07-08 17:45 | PN ---
BHS COWS - Scale Resting Pulse: 0= [place] 80 or Below Sweatin= No chills or Flushing Restless Observation: 1= Difficult to Sit Still Pupil Size: 0= Normal to Room Light Bone or Joint Aches: 0= None Runny Nose/ Eye Tearin= None GI Upset > 30mins: 0= None Tremor Observation of Outstretched Hands: 0= None Yawning Observation: 1= 1-2x During Session Anxiety or Irritability: 0= None Goose Flesh Skin: 0=Smooth Skin COWS Score: 2 BHS Progress Note (SOAP) Subjective: Patient denies current Withdrawal / Detox symptoms and reports that he feels well overall at this time. Objective: PATIENT A & O X 3, OBSERVED AMBULATING ON DETOX UNIT UNASSISTED. IN NO ACUTE DISTRESS. 07/08/19 17:43 Vital Signs Temperature 97.1 F L 07/08/19 17:40 Pulse Rate 67 07/08/19 17:40 Respiratory Rate 18 07/08/19 17:40 Blood Pressure 96/63 07/08/19 17:40 O2 Sat by Pulse Oximetry (%) Laboratory Tests 07/07/19 07/07/19 07/07/19 08:10 08:10 08:10 WBC 3.2 L RBC 4.28 Hgb 12.8 Hct 38.8 MCV 90.8 MCH 29.9 MCHC 33.0 RDW 13.9 Plt Count 197 MPV 9.3 Sodium 142 Potassium 4.1 Chloride 106 Carbon Dioxide 30 Anion Gap 6 L BUN 12.8 Creatinine 1.2 Est GFR (CKD-EPI)AfAm 81.23 Est GFR (CKD-EPI)NonAf 70.09 Random Glucose 113 H Calcium 8.9 Total Bilirubin 0.4 AST 15 ALT 22 Alkaline Phosphatase 49 Total Protein 6.6 Albumin 3.8 RPR Titer Nonreactive LABS NOTED. Assessment: 07/08/19 17:43 WITHDRAWAL SYMPTOMS. Plan: CONTINUE DETOX. PATIENT SCHEDULED FOR D/C FROM DETOX UNIT TOMORROW.
[2019-07-08] MEDS: THIAMINE HCL 100 MG TABLET (FP) PO SCH (22:09)
[2019-07-08] MEDS: MELATONIN 5 MG TABLETS PO PRN (22:09)
[2019-07-09] MEDS ORDERED: METHADONE HCL 5 MG TABLET (FOR DETOX USE ONLY) PO ONE (06:00)
[2019-07-09 09:32] VITALS: BP 119/76; PULSE 80; TEMP 97.5
--- NOTE | 2019-07-09 13:47 | DS ---
[facility] Detox Discharge Summary Admission Date: 07/06/19 Discharge Date: 07/09/19 - History Present History: Opioid Dependence Additional Comments: Pt is medically cleared and is discharge today. Pt completed his detox protocol. Pt is encouraged to follow-up with [facility] oupatient program and also to follow-up with his pmd. Pt verbalized understanding. Pt is alert and oriented x3 and in no respiratory distress. Pertinent Past History: h/o heroin use disorder. - Physical Exam Results Vital Signs: Vital Signs Temperature 97.5 F L 07/09/19 09:31 Pulse Rate 80 07/09/19 09:31 Respiratory Rate 18 07/09/19 09:31 Blood Pressure 119/76 07/09/19 09:31 O2 Sat by Pulse Oximetry (%) Vital Signs 07/09/19 07/09/19 07:01 09:31 Temperature 97.6 F 97.5 F L Pulse Rate 87 80 Respiratory 18 18 Rate Blood Pressure 97/64 119/76 Lab Results WBC 3.2 K/mm3 (4.0-10.0) L 07/07/19 08:10 RBC 4.28 M/mm3 (4.00-5.60) 07/07/19 08:10 Hgb 12.8 GM/dL (11.7-16.9) 07/07/19 08:10 Hct 38.8 % (35.4-49) 07/07/19 08:10 MCV 90.8 fl (80-96) 07/07/19 08:10 MCHC 33.0 g/dl (32.0-35.9) 07/07/19 08:10 RDW 13.9 % (11.9-15.9) 07/07/19 08:10 Plt Count 197 K/MM3 (134-434) 07/07/19 08:10 Sodium 142 mmol/L (136-145) 07/07/19 08:10 Potassium 4.1 mmol/L (3.5-5.1) 07/07/19 08:10 Chloride 106 mmol/L (98-107) 07/07/19 08:10 Carbon Dioxide 30 mmol/L (21-32) 07/07/19 08:10 Anion Gap 6 MMOL/L (8-16) L 07/07/19 08:10 BUN 12.8 mg/dL (7-18) 07/07/19 08:10 Creatinine 1.2 mg/dL (0.55-1.3) 07/07/19 08:10 Random Glucose 113 mg/dL (74-106) H 07/07/19 08:10 Calcium 8.9 mg/dL (8.5-10.1) 07/07/19 08:10 Labs noted. Pertinent Admission Physical Exam Findings: withdrawal symptoms. - Treatment Hospital Course: Detox Protocol Followed, Detoxed Safely, Responded well, Discharged Condition Good - Medication Discharge Medications: Ambulatory Orders NK [No Known Home Medication] 12/14/18 - Diagnosis (1) GERD (gastroesophageal reflux disease) Status: Acute (2) Alcohol dependence with withdrawal Status: Chronic Qualifiers: Complication of substance-induced condition: uncomplicated Qualified Code(s ): F10.230 - Alcohol dependence with withdrawal, uncomplicated (3) Nicotine dependence Status: Chronic Qualifiers: Nicotine product type: cigarettes Substance use status: uncomplicated Qualified Code(s): F17.210 - Nicotine dependence, cigarettes, uncomplicated (4) Opioid dependence with withdrawal Status: Chronic - AMA Did Patient Leave Against Medical Advice: No
== END 2019-07-09 09:00 | disposition home or self-care (01) | DRG 773 ==
LOC: YASAS 14:05 → Y3N 18:22
PROVIDERS: ADMIT Allergy & Immunology; ATTEND Allergy & Immunology
PROC: HZ2ZZZZ Detoxification Services for Substance Abuse Treatment (ICD-10-PCS; principal; 2019-07-06)
DX: F10.230 Alcohol dependence with withdrawal, uncomplicated (principal); F11.23 Opioid dependence with withdrawal; F17.210 Nicotine dependence, cigarettes, uncomplicated; K21.9 Gastro-esophageal reflux disease without esophagitis; D72.819 Decreased white blood cell count, unspecified; Z87.442 Personal history of urinary calculi
CPT/HCPCS: 36415; 80053; 85027; 86593